=== PATIENT | female | born 1985 | race African-American/Black ===

== ENCOUNTER 2020-04-10 05:09 | Emergency (ER) | payer MEDICAID ==
[~2020-04-10] VITALS: Ht 165.1 cm; Wt 77.0 kg
[2020-04-10 05:12] VITALS: BP 140/78
[2020-04-10] MEDS ORDERED: SODIUM CHLORIDE 0.9% 1,000 ML IV SCH (07:24)
[2020-04-10] MEDS ORDERED: DIPHENHYDRAMINE 50MG/ML VIAL IV ONE (07:30)
[2020-04-10] MEDS ORDERED: FAMOTIDINE 20MG/2ML VIAL IV ONE (07:30)
[2020-04-10] MEDS ORDERED: METHYLPREDNISOLONE SOD SUCC 125 MG/2 ML VIAL IV ONE (07:30)
[2020-04-10] MEDS ORDERED: FAMOTIDINE 20MG TABLET PO ONE (09:30)
[2020-04-10] MEDS ORDERED: METHYLPREDNISOLONE SOD SUCC 125 MG/2 ML VIAL IM ONE (09:30)
== END 2020-04-10 09:00 | disposition left against medical advice (07) ==
LOC: ER 05:09
DX: T78.49XA Other allergy, initial encounter (principal); X58.XXXA Exposure to other specified factors, initial encounter; Z98.890 Other specified postprocedural states
CPT/HCPCS: 93005; 99283; J1200; J2930; J3490